=== PATIENT | male | born 1950 | race Caucasian/White ===

== ENCOUNTER → 2016-11-04 | Outpatient (CLI) | payer OTHER ==
[~2016-11-04] MED LIST: ASPEC81 PO; IBUP600T44 PO; LABE1TAB28 PO; LISI-461 PO; SIMV40TA2 PO
--- NOTE | 2016-11-04 13:38 | DIAGNOSTIC IMAGING REPORT ---
CHEST 2 VIEWS ROUTINE CLINICAL HISTORY: R06.09 Dyspnea on [id number] chest pain COMPARISON STUDY: No previous studies for comparison. FINDINGS: The bones soft tissues and hemidiaphragms are normal. The cardiomediastinal silhouette is normal. The lungs are clear. The pulmonary vasculature is normal. IMPRESSION: Negative chest. The above report was generated using voice recognition software. It may contain grammatical, syntax or spelling errors. Electronically signed by: Ricco Lomax M.D. 11/04/2016 1:37 PM Dictated Date/Time: 11/04/2016 1:37 PM
== END | disposition home or self-care (01) ==
LOC: C.RAD1850 13:28
PROVIDERS: ATTEND Internal Medicine
DX: R06.09 Other forms of dyspnea (principal)

== ENCOUNTER 2023-03-10 09:05 | Observation (INO) ==
--- NOTE | 2023-03-10 09:26 | Emergency Department Note ---
Impression & Plan Ataxia, Ambulatory dysfunction ED Provider Note Name: TERA BELLO Age: 72 Sex: Male Arrives Via: Walk-In Informant: Patient, , family ED Provider: Josh Farley MD Chief Complaint: Difficulty walking Impression: As per impressions above Medical Decision Makin-year-old male with paroxysmal A-fib who had previously been on Coumadin but developed a subdural hematoma requiring drainage over the summer. He also does have a history of hypertension, dyslipidemia and diabetes. Patient notes it been doing well the last few weeks in no distress. Yesterday afternoon/evening he started noticing difficulty walking straight. He feels like he just cannot move properly. He also noted some difficulty with signing his name. On examination he does not have any acute neurologic deficits. There is no LVO finding on examination and given symptoms have been ongoing since yesterday afternoon/evening he would not be a acute stroke alert patient nor would he be thrombolytic candidate especially given recent head bleed. We will hold off on anticoagulation/antiplatelet until further work-up and evaluation by hospitalist. Patient is agreeable to staying. Triage/Nursing Notes reviewed by Me External Chart Review by me: 12/14/2022 PCP visit regarding recent hospitalization for head bleed and management. Differential:Infection, dehydration, metabolic abnormality, hypo/hyperglycemia, electrolyte disturbance, anemia, hypoxia, cardiac sources, intracerebral event, toxicologic, neurologic, as well as other pathologies. Vital Signs: reviewed and remarkable for hypertensive Labs:ED labs Reviewed by me and remarkable for no significant abnormalities Imaging:CT of the head without contrast as per my informal interpretation reveals trace fluid at site of previous subdural no acute hemorrhage appreciated or mass effect. This was confirmed by radiologist. EKG:As per my interpretation. Indication strokelike symptoms. Sinus bradycardia at 59 bpm with a QTc of 396. There is no ectopy nor ischemia. When compared to EKG of December 02, 2022 there is no significant change. Cardiac/Tele Monitoring: Cardiac Monitoring: An Order was placed for continuous cardiac monitoring. The monitor shows a rate of 60 with a normal sinus rhythm. Consults:Dr Lisa VILLALOBOS Hospitalist Plan: Disposition: Discharged. Condition: Good History of Present Illness: 72-year-old male arrives for evaluation of ataxia. Patient states he noticed around 7 PM last night he just did not seem to be able to walk straight. Since then he has been stumbling around. He continued this morning. He denies any other significant other symptoms. He has not had any headaches, neck pain, fevers, chills, chest pain, shortness of breath, abdominal pain, back pain, leg swelling, urinary or bowel concerns. He states has been feeling pretty well recently. Patient did have an intracranial hemorrhage in November and has been off his Coumadin since then. He had been on Coumadin for A- fib. He has a Watchman device placement planned for April 2023 (2 months from now). Patient denies previous history of stroke. He is not a smoker. He does have a history of hypertension, diabetes, hyperlipidemia. No recent falls, trauma, injuries. Patient had bur holes drilled for drainage of his subdurals over the summer. Past Medical History:See Below Home Medications:See Below Allergies:No known drug allergy Vitals:Blood Pressure: 182/85, Pulse 58, RR 16, T 36.0C, O2 98% on RA Physical Exam: GENERAL: Patient is well appearing and in no acute distress. HEAD: AT/NC RESPIRATORY: No dyspnea. Clear to auscultation and equal bilaterally. CARDIOVASCULAR: Regular rate and rhythm.No murmur appreciated. GASTROINTESTINAL: Abdomen soft, non-tender, no peritonitis. EXTREMITIES: Normal motion all extremities, no cyanosis, no edema. NEUROLOGIC: Alert and oriented. No focal neurologic deficits appreciated SKIN: No rash, no jaundice, no diaphoresis. PSYCH: Appropriate GCS: 15 ED Course: Times/Reassessments: Patient is stable no distress no focal deficits beyond he is having some difficulty signing his name. Josh Farley MD Past Med/Surg History Medical History Benign positional vertigo Chronic obstructive pulmonary disease Diabetes mellitus, type 2 Disc disorder of cervical region Endocarditis Hyperlipidemia Hypertension [facility] current use of anticoagulant Mild intermittent asthma without complication Mild obstructive sleep apnea Nocturnal hypoxemia Subchondral cyst Viral wart, unspecified Surgical History Hernia History of colonoscopy History of herniorrhaphy Family History Sister Diabetes Hypertension Brother Diabetes Hypertension Father Myocardial infarction Hypertension Uncle Myocardial infarction Mother Ovarian cancer Hypertension Denies family history of Prostate cancer Breast cancer Lung cancer Colorectal cancer Stroke Social History Smoking Status: Never smoker Second Hand Exposure: No; Do You Dip or Chew Tobacco: No; Hx Alcohol Use: Yes Alcohol type: beer Hx Substance Use: No Preferred Language: Portuguese Communication Ability: Effective Visual Impairment: Limited Hearing Ability: Normal 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 Beliefs That Will Affect Care: None marital status: Current Living Situation: Spouse current occupational status: retired How many Children do You have: 0 Feels Safe at Home: Yes Childhood Exposure to Second-Hand Smoke: Yes caffeine: Yes Dental Care, Regularly: No Physical Activity Frequency: 3-4 Times per Week Seatbelt Use: always Sunscreen Use: Yes Assistive Devices: CPAP Allergies Allergies Allergy/AdvReac Type Severity Reaction Status Date / Time No Known Drug Allergies Allergy Verified 01/13/23 14:33 Home Meds Home Medications Medication Instructions Recorded Confirmed albuterol sulfate 90 mcg/actuation 1 puffs inhalation ONCE PRN 12/02/18 01/13/23 aerosol inhaler Shortness Of Breath Or Wheezing #1 g Previous Rx's Medication Instructions Recorded lancets (Accu-Chek Fastclix Lancet #100 ea 07/17/20 Drum) simvastatin 20 mg tablet 20 mg PO HS #90 tabs 02/12/22 lisinopril 20 mg tablet 20 mg PO QAM #90 tabs 10/16/22 metformin 500 mg tablet,extended See Rx Instructions .Route 10/22/22 release 24 hr .COMPLEX #180 tabs Accu-Chek Mami Plus test strp #100 ea 12/15/22 (blood sugar diagnostic) blood-glucose meter (Accu-Chek #1 ea 12/17/22 Guide Glucose Meter) amlodipine 5 mg tablet See Rx Instructions .Route 02/02/23 .COMPLEX #90 tabs Results & Data (ED) Vital Signs Vital Signs - 24 hr 03/10/23 09:06 03/10/23 09:12 03/10/23 10:00 Temperature 36.0 C L Temperature Source Temporal Artery Scan Pulse Rate 58 L Pulse Rate [Apical] 60 Pulse Rate from SpO2 Sensor Pulse Rhythm [Apical] Regular Pulse Strength [Apical] Normal Respiratory Rate 16 18 Respiratory Effort / Characteristics Non-Labored Non-Labored Spontaneous Respiratory Depth Normal Normal Respiratory Pattern Regular Blood Pressure 182/85 H Blood Pressure [Left Arm] 178/87 H Blood Pressure Mean 117 Blood Pressure Mean [Left Arm] 117 Blood Pressure Position [Left Arm] Sitting Pulse Oximetry 95 98 96 Oxygen Delivery Method Room Air Room Air Room Air Sepsis Recent Fever Within 48 Hours No Sepsis New/Unexplained Change in Mental Status N/A Sepsis Action Taken by Nursing No Action Required 03/10/23 10:03 03/10/23 10:04 03/10/23 10:53 Temperature Temperature Source Pulse Rate 59 L 59 L 62 Pulse Rate [Apical] Pulse Rate from SpO2 Sensor 58 L Pulse Rhythm [Apical] Pulse Strength [Apical] Respiratory Rate 20 21 Respiratory Effort / Characteristics Respiratory Depth Respiratory Pattern Blood Pressure Blood Pressure [Left Arm] Blood Pressure Mean Blood Pressure Mean [Left Arm] Blood Pressure Position [Left Arm] Pulse Oximetry 99 96 Oxygen Delivery Method Sepsis Recent Fever Within 48 Hours Sepsis New/Unexplained Change in Mental Status Sepsis Action Taken by Nursing 03/10/23 10:53 03/10/23 11:00 03/10/23 11:00 Temperature Temperature Source Pulse Rate 61 Pulse Rate [Apical] Pulse Rate from SpO2 Sensor 61 Pulse Rhythm [Apical] Pulse Strength [Apical] Respiratory Rate 17 Respiratory Effort / Characteristics Respiratory Depth Respiratory Pattern Blood Pressure 146/79 H 156/86 H Blood Pressure [Left Arm] Blood Pressure Mean 93 104 Blood Pressure Mean [Left Arm] Blood Pressure Position [Left Arm] Pulse Oximetry 96 Oxygen Delivery Method Sepsis Recent Fever Within 48 Hours Sepsis New/Unexplained Change in Mental Status Sepsis Action Taken by Nursing 03/10/23 12:00 03/10/23 12:01 03/10/23 12:01 Temperature Temperature Source Pulse Rate 58 L 60 Pulse Rate [Apical] Pulse Rate from SpO2 Sensor 59 L 60 Pulse Rhythm [Apical] Pulse Strength [Apical] Respiratory Rate 19 19 Respiratory Effort / Characteristics Respiratory Depth Respiratory Pattern Blood Pressure 142/87 H Blood Pressure [Left Arm] Blood Pressure Mean 103 Blood Pressure Mean [Left Arm] Blood Pressure Position [Left Arm] Pulse Oximetry 96 95 Oxygen Delivery Method Sepsis Recent Fever Within 48 Hours Sepsis New/Unexplained Change in Mental Status Sepsis Action Taken by Nursing 03/10/23 12:05 Temperature Temperature Source Pulse Rate Pulse Rate [Apical] Pulse Rate from SpO2 Sensor Pulse Rhythm [Apical] Pulse Strength [Apical] Respiratory Rate Respiratory Effort / Characteristics Respiratory Depth Respiratory Pattern Blood Pressure Blood Pressure [Left Arm] 142/87 H Blood Pressure Mean Blood Pressure Mean [Left Arm] 105 Blood Pressure Position [Left Arm] Sitting Pulse Oximetry Oxygen Delivery Method Sepsis Recent Fever Within 48 Hours Sepsis New/Unexplained Change in Mental Status Sepsis Action Taken by Nursing Laboratory Data 03/10/23 Unknown 03/10/23 Unknown Lab Results 03/10/23 Range/Units 10:12 POC Glucose 124 H (70-99) mg/dl Administered Medications Discontinued Medications Ioversol (Optiray 320 125ml) 115 ml IV ONCE ONE Stop: 03/10/23 13:24 Last Admin: 03/10/23 13:24 Dose: 115 ml Documented By: NGHIA Imaging Data Radiologist's Impression: Head CT 03/10/23 09:26 CT head/brain wo con CLINICAL HISTORY: Ataxia Technique: Contiguous axial CT images of the head were acquired from the base of the skull to the vertex without intravenous contrast administration. Images were viewed in brain, subdural and bone windows. Automated dose lowering techniques and/or adjustment according to patient size were utilized for this exam. Comparison: Comparison is made to CT head 12/02/2022 Findings: Previously noted left subdural hematoma is essentially resolved. No acute abnormality is seen. Imaged portions of the paranasal sinuses and mastoid air cells are clear. The orbits appear normal. Postsurgical changes are seen in the left calvarium. Impression: No acute abnormality. Previously noted left subdural hemorrhage has resolved. ACT 112: Negative or not required by law. Electronically signed by: Teddy Staton M.D. 03/10/2023 10:54 AM Head CTA 03/10/23 11:59 CT ANGIOGRAM OF THE BRAIN CLINICAL HISTORY: Dysgraphia. COMPARISON STUDY: Unenhanced CT of the brain performed the same day 03/10/2023. TECHNIQUE: Following the IV administration of 115 cc of Optiray 320, CT angiogram of the brain was performed from the skull base to the vertex. Images are reviewed in the axial, sagittal, and coronal planes. 3-D MIPS images are created and assessed. IV contrast was administered without complication. A dose lowering technique was utilized adhering to the principles of ALARA. FINDINGS: Brain parenchyma: There is age-related involutional change noting mild to moderate subcortical and periventricular microangiopathic disease. There is no evidence of hemorrhage, mass effect, or acute territorial ischemia noting angiographic phase technique. There is no evidence of enhancing mass lesion on the angiogram phase images. No extra-axial fluid collection is seen. There is a small residual/ chronic appearing extra-axial fluid collection along the high left convexity seen on axial image #190. This likely represents a small chronic subdural hematoma. Ventricles, sulci, and cisterns: Prominent secondary to involutional change. CT angiogram of the brain: There is atherosclerotic calcification of the cavernous carotid and vertebral arteries. The internal carotid arteries are widely patent, as are the anterior and middle cerebral arteries. The vertebrobasilar system and posterior cerebral arteries are widely patent. The left vertebral artery is dominant. The right P1 segment is diminutive. There are bilateral posterior communicating arteries. There is no aneurysm, high-grade stenosis, or focal vessel cutoff identified throughout the intracranial circulation. Dural sinuses: Clear as visualized. Orbits: The bony orbits are intact. The orbital contents are normal as visualized. Sinuses and mastoids: The visualized paranasal sinuses are clear. The mastoid air cells are well pneumatized. Calvarium: There are 2 left-sided naida holes. No destructive calvarial lesion is seen. IMPRESSION: 1. There is no evidence of acute hemorrhage, mass effect, or territorial ischemia noting angiographic phase technique. 2. There is a small residual extra axial fluid collection along the high left convexity. This likely represents a chronic subdural hematoma and measures up to 5 mm in thickness. 3. Unremarkable CT angiogram of the brain. ACT 112: Negative or not required by law. Electronically signed by: Nolan Tierney M.D. 03/10/2023 1:59 PM Neck CTA 03/10/23 11:59 NECK CTA HISTORY: new onset Dysgraphia, right handed TECHNIQUE: Multiaxial CT images of the neck were performed following the intravenous administration of contrast to evaluate the major cervical vessels. 3D/MIP images were also obtained. Sagittal and coronal reformats were reviewed. All measurements were calculated based on NASCET criteria. A dose lowering technique was utilized adhering to the principles of ALARA. COMPARISON STUDY: None. FINDINGS: The aortic arch and proximal great vessels are widely patent. There is no significant stenosis, occlusion, or dissection identified within the bilateral common carotid, internal carotid, or vertebral arteries. Mild to moderate calcified plaque within the bilateral carotid bulbs. IMPRESSION: No significant stenosis, occlusion, or dissection identified within the carotid or vertebral arteries. ACT 112: Negative or not required by law. Electronically signed by: Clay Shannon M.D. 03/10/2023 1:50 PM Discharge Plan Visit Data Chief Complaint: Dizziness Stated Complaint: DIZZINESS, PREVIOUS BRAIN BLEED ED Provider: Josh Farley Discharge Problem: Ataxia, Ambulatory dysfunction Patient Disposition: Being Evaluated by Hospitalist Discharge Instructions Interventions: ED Discharge Assessment Last Done: 03/10/23 15:27
[2023-03-10 10:20] LABS: Basophils # (auto) 0.02 K/uL (0.00-0.20); Basophils % (auto) 0.5 %; Eosinophils # (auto) 0.18 K/uL (0.00-0.50); Eosinophils % (auto) 4.7 %; Hemoglobin 16.1 g/dl (14.0-18.0); Immature Granulocytes # (auto) 0.01 K/uL (0.01-0.20); Immature Granulocytes % (auto) 0.3 %; Lymphocytes # (auto) 1.15 K/uL (1.20-3.40); Mean Corpuscular Hemoglobin 29.2 pg (25.0-34.0); Mean Corpuscular Volume 83.5 fL (80.0-100.0); Mean Platelet Volume 10.2 fL (9.4-12.4); Monocytes # (auto) 0.27 K/uL (0.11-0.59); Neutrophils % (auto) 57.5 %; Platelet Count 159 K/uL (130-400); RDW Coefficient of Variation 12.5 % (11.5-14.5); RDW Standard Deviation 37.8 fL (36.4-46.3); Red Blood Count 5.51 M/uL (4.70-6.10); White Blood Count 3.83 K/ul (4.8-10.8)
--- OUTSIDE RECORDS SUMMARY | 2023-03-10 10:27 | External Medical Summary | Summary of Care ---
Author Name Unknown Organization [facility] Address [address] [place] [address] Phone [phone] Care Team Providers Care Mechanic General Operational Test Name Role Phone Malika Harris MD Primary Care Provide r Reason for Visit * Reason Comments NEW PATIENT * Evaluate & Treat - Unlimited Visits (Within 30 days (routine)) - Authorized Specialty Diagnoses / Procedures Referred By Contjared t Referred To Contact Cardiovascular Medicine / Cardiology Diagnoses Atrial fibrillation (HCC) Nathan Lemus MD [address] [address] Referral ID Status Reason Start Date Expiration Date Visits Requested Visits Authorized [id number] Authorized Specialty Services Required 01/23/2023 01/24/2024 [id number] Encounter Details Date Type Department Care Team (Late st Contact Info) Description 02/19/2023 1:00 PM EDT Office Visit Cardiology [facility] [address] [place] [address] Manuel Ellis CRNP [address] [place] [address] Persistent atrial fibrillation (HCC)*; HTN, goal below 130/80; Type 2 diabetes mellitus with hemoglobin A1c goal of less than 8.0% (HCC) Allergies No known active allergiesdocumented as of this encounter (statuses as of 02/23/2023) Medications Medication Sig Dispensed Refills Start Date End Date Status amLODIPine Besylate 5 MG Oral Tablet (Norvasc) Take 1 Tablet by mouth in the morning. 0 Active Lisinopril 20 MG Oral Tablet (Prinivil) Take 1 Tablet by mouth in the morning. 0 Active Simvastatin 20 MG Oral Tablet (Zocor) Take 1 Tablet by mouth every evening. 0 Active metFORMIN HCl ER 500 MG Oral Tablet Extended Release 24 Hour (Glucophage XR) Take 1 tablet by mouth in the morning and 2 tablets by mouth in the evening. 0 Active levETIRAcetam 500 MG Oral Tablet (Keppra) Take 1 Tablet by mouth two times per day (morning & before bedtime). Do all this for 4 days. 8 Tablet 0 12/05/2022 02/19/2023 Discontinued( Medication List Clean Up) documented as of this encounter (statuses as of 02/23/2023) Active Problems Problem Noted Date Diagnosed Date Persistent atrial fibrillation 02/19/2023 HTN, goal below 130/80 02/19/2023 Type 2 diabetes mellitus wit h hemoglobin A1c goal of less than 8.0% 02/19/2023 Dyslipidemia 02/19/2023 BRIAN on CPAP 02/19/2023 documented as of this encounter (statuses as of 02/23/2023) Resolved Problems Problem Noted Date Diagnosed Date Resolved Date SDH (subdural hematoma) 12/05/202211/18 documented as of this encounter (statuses as of 02/23/2023) Social History Tobacco Use Types Packs/Day Years Used Date Smoking Tobacco: Never Smokeless Tobacco: Never Tobacco Cessation:Counseling Given: Not Answered Alcohol Use Standard Drinks/Week Comments Never 0 (1 standard drink = 0.6 oz pur e alcohol) Sex and Gender Information Value Date Recorded Sex Assigned at Not on file Gender Identity Not on file Sexual Orientation Not on file Job Start Date Occupation Industry Not on file Not on file Not on file documented as of this encounter Last Filed Vital Signs Vital Sign Reading Time Taken Comments Blood Pressure 142/74 02/19/2023 12:53 PM EDT Pulse 66 02/19/2023 12:53 PM EDT Temperature - - Respiratory Rate - - Oxygen Saturation 97% 02/19/2023 12: 53 PM EDT Inhaled Oxygen Concentration - - Weight 111.5 kg (245 lb 14.4 oz) 2022 12:53 PM EDT Height 170.2 cm (5' 7") 02/19/2023 12:5 3 PM EDT Body Mass Index 38.51 02/19/2023 12:53 PM EDT documented in this encounter Functional Status Functional Status Response Date of Assess ment Are you deaf or do you have serious difficulty h earing? No 12/02/2022 Are you blind or do you have serious difficulty seeing, even when wearing glasses? No 12/02/2022 Do you have serious difficul ty walking or climbing stairs? (5 years old or older) No 12/02/2022 Do you have difficulty dress ing or bathing? (5 years old or older) No 12/02/2022 Because of a physical, menta l, or emotional condition, do you have difficulty doing errands alone such as visiting a doctor s office or shopping? (15 years old or older) No 12/03/19 Cognitive Status Response Date of Assessm ent Because of a physical, menta l, or emotional condition, do you have serious difficulty concentrating, remembering, or making decisions? (5 years old or older No 12/02/2022 documented as of this encounter Progress Notes * Manuel Ellis CRNP - 02/19/2023 1:35 PM EDT (Kevin) Subjective: Zander John is a 72 year old male. Chief Complaint Patient presents with NEW PATIENT HPI: Zander John is a 72 year old who presents today at the request of his PCP Malika Harris MD and Dr. Lemus to discuss Watchman implantation. Zander John had persistent atrial fibrillation back in 2018. He was noted to have atrial fibrillationwhen going in for a colonoscopy. Was unaware of the atrial fibrillation at that time. He was started on Eliquis at that point and then ultimately underwent a cardioversion with Dr. Fields on 03/09/2019. He has been maintained on Eliquis ever since. In November of 2022 he started to develop some neurologic changes. At that time he was noted to have an intracranial hemorrhage. [facility] and his anticoagulation was stopped. He then more a bio Tel event monitor however those results are not yet available. His CHADS-VASc is 3 with age hypertension and diabetes in his currently on no anticoagulation. He was referred today to discuss Watchman implantation. He still does some farming. He has not had any issues as far as chest pain, palpitations or changesin his breathing. He is overweight and does have obstructive sleep apnea and is treated with CPAP. CARDIAC HISTORY: 03/09/2019 [facility] for persistent AF - [facility] Dr. Fields - started Ronna 12/02/2022 intracranial bleed [place] [facility] [place]/03[place]: Left frontal and parietal naida-holes for evacuation of subdural hematoma (Dipak) PMH: Patient Active Problem List Diagnosis Code Persistent atrial fibrillation (HCC) I48.19 HTN, goal below 130/80 I10 Type 2 diabetes mellitus with hemoglobin A1c goal of less than 8.0% (HCC) E11.9 Dyslipidemia E78.5 BRIAN on CPAP G47.33 Current Outpatient Medications Medication Sig Dispense Refill amLODIPine Besylate 5 MG Oral Tablet (Norvasc) Take 1 Tablet by mouth in the morning. Lisinopril 20 MG Oral Tablet (Prinivil) Take 1 Tablet by mouth in the morning. Simvastatin 20 MG Oral Tablet (Zocor) Take 1 Tablet by mouth every evening. metFORMIN HCl ER 500 MG Oral Tablet Extended Release 24 Hour (Glucophage XR) Take 1 tablet by mouthin the morning and 2 tablets by mouth in the evening. No current facility-administered medications for this visit. Past Medical History: Diagnosis Date Dyslipidemia HTN, goal below 130/80 BRIAN on CPAP Persistent atrial fibrillation (HCC) Type 2 diabetes mellitus with hemoglobin A1c goal of less than 8.0% (HCC) Past Surgical History: Procedure Laterality Date LAP;REPAIR RECURRENT HERNIA Left OPEN SKULL FOR REMOVAL OF HEMATOMA Left 12/03/2022 CRANIOTOMY EVACUATION OF SUBDURAL OR EXTRADURAL HEMATOMA SUPRATENTORIAL performed by Lul Quesada, [place] [facility] [place] Review of patient's allergies indicates: No Known Allergies Family History Problem Relation Age of Onset Heart disease Father Hyperlipidemia Sister Hypertension Sister Hypertension Brother Hyperlipidemia Brother Diabetes Brother Diabetes Brother Hypertension Brother Hyperlipidemia Brother Social History Socioeconomic History Marital status: Tobacco Use Smoking status: Never Smokeless tobacco: Never Vaping Use Vaping Use: Never used Substance and Sexual Activity Alcohol use: Never Drug use: Never Review of Systems: General: No change in weight, No weakness, and No fevers, sweats, or chills Neck: No complaint of lumps in neck, No swollen glands, No recent swelling in thyroid area, and No significant pain in neck Respiratory: No cough, sputum, or hemoptysis, No wheezing, No shortness of breath, and No recent change in breathing Cardiac: No chest pain, No shortness of breath, No dyspnea on exertion, No orthopnea, No paroxysmalnocturnal dyspnea, No edema, No palpitations, and No syncope Gastrointestinal: No dysphagia, No significant heartburn, No significant change in appetite, No nausea, vomiting, diarrhea, or constipation, No hematemesis, No blood in stools or black tarry stools, No abdominal bloating or early satiety, and No abdominal pain Urinary: No urinary frequency, No dysuria, No hematuria, No urinary urgency, No polyuria, No nocturia, No incontinence, No hesitancy, and No sensation of incomplete voiding Musculoskeletal: No joint pain or stiffness, No arthritis, No backache, No muscle pains or cramps, and No joint swelling Hematologic: No anemia, No easy bruising or abnormal bleeding, and No history of transfusion Neurologic: No fainting or blackouts, No seizures, No paralysis or focal weakness, No numbness or tingling, No tremors, and No significant problems with memory Skin: No edema, No rash, and No itching Extremities: No pain, redness or swelling on the joints Objective: BP 142/74 | Pulse 66 | Ht 1.702 m (5' 7") | Wt 111.5 kg (245 lb 14.4 oz) | SpO2 97% | BMI 38.51 kg/m | BSA 2.3 m General: alert, no distress, and obese Neck: supple, no adenopathy, no bruits, no JVD, thyroid normal size, non-tender, without nodularity Heart: regular rate & rhythm, no murmur, and no gallops Lungs: chest symmetric with normal AP diameter, no chest deformities noted, no chest wall tenderness, lungs clear to auscultation Pulses: radial=2/4, carotid=2/4 w/o bruits, posterior tibial=2/4, dorsalis pedis=2/4 Extremities: less than 2 second capillary refill, no joint deformities, effusion, or inflammation, no edema, no skin discoloration, no cyanosis Neuro Exam: alert & oriented x 3 with fluent speech, no focal motor/sensory deficits, gait normal Skin: skin color, texture, turgor are normal, no rashes or significant lesions EKG reveals normal sinus rhythm today Patient advised to call me if he/she does not hear back from me regarding any testing done/ordered.Explained I will always make contact with the patient once I receive the results but if they do notcome back to me, my safety net is the patient who should call me if they hear nothing within 1-2 weeks. ASSESSMENT/PLAN: ICD-10-CM 1. Persistent atrial fibrillation (HCC) I48.19 2. HTN, goal below 130/80 I10 3. Type 2 diabetes mellitus with hemoglobin A1c goal of less than 8.0% (HCC) E11.9 Persistent AF - his CHADS-VASc is 3 which puts him at high risk based on the ACC shared decision making criteria.He was given a handout of this information. - given his CHADS-VASc of 3 regardless of what the most recent monitor showed we know that having atrial fibrillation once predisposes him to having it in the future as well. He was not aware of his atrial fibrillation back in 2019 thus he could clearly be having silent atrial fibrillation. - we discussed Watchman in detail. He wishes to go home and discuss with his family further before making any decision. - he will call with his final decision. - I called Dr. Lemus's office in the monitor results are not yet available. They are to fax thoseonce they do become available 02/23/2023 - NO AF on Zio monitor - Shared Decision Making Documentation for Watchman I provided the patient with the [facility] [employer] decision aid for AFIB Stroke Prevention to the patient. They wish to proceed with Watchman implantation 2. HTN - stable - follow up per PCP 3. DM - per PCP Follow up as needed. I spent a total of 30-39 minutes (exact time 35 mins) on the date of service in preparation, delivery, and documentation of the care provided to Zander John excluding any time spent in the performance of separately billed services. Manuel GARZA, ZACHERY Division of Cardiology/[place] [address] MC: [phone] 02/19/2023 1:35 PM documented in this encounter Plan of Treatment Scheduled Referrals Name Type Priority Associated Diagnoses Orde r Schedule CARDIOLOGY REFERRAL OP Referral Within 30 days (routine) Atrial fibrillation (HCC) Ordered: 01/23/2023 Health Maintenance Due Date Last Done Comments Lipid Panel 1950 COVID-19 Vaccine (#1) 1950 Pneumococcal Vaccine: 65+ Years (1 - PCV) 1958 Depression Screening 1964 Albumin/Creatinine Ratio 1970 Diabetic Eye Exam 1970 Diabetic Foot Exam 1970 Hepatitis C Screening 1970 DTaP,Tdap,and Td Vaccines (1 - Tdap) 1971 Cologuard 1997 Colonoscopy 1997 Colorectal Cancer Screening 1997 Fecal Occult Blood Test 1997 Sigmoidoscopy 1997 Zoster Vaccines (1 of 2) 2002 Hepatitis B (1 of 3 - Risk 3-dose series) 2012 Influenza Vaccine (FLU shot) (#1) 2022 HbA1c 06/05/2023 12/03/2022 GFR 12/06/2023 12/05/2022, 11/18, 12/03/2022, Additional history exists GARDASIL-HPV IMMUNIZATION SERIES Aged Out No longer eligible based on patient's age to complete this topic MENINGOCOCCAL (MENACTRA/MENVEO) Aged Out No longer eligible based on patient's age to complete this topic documented as of this encounter Medical Devices Not on filedocumented as of this encounter Visit Diagnoses Diagnosis Persistent atrial fibrillation (HCC)- Primary Atrial fibrillation HTN, goal below 130/80 Unspecified essential hypertension Type 2 diabetes mellitus with hemoglobin A1c goal of less than 8.0% (HCC) documented in this encounter Advance Directives Latest Code Status on File Code Status Date Activated Date Inactivated Comments Full Code 12/03/2022 3:37 PM 12/05/2022 6:05 PM This order reflects the patients wishes and were consensually agreed upon. Question Answer Comments Discussion of Advance Directives occurred with: Not Discussed due to patient's condition Code Status History Code Status Date Activated Date Inactivated Comments Full Code 12/02/2022 6:38 PM 12/03/2022 3:36 PM This order reflects the patients wishes and were consensually agreed upon. Question Answer Comments Discussion of Advance Directives occurred with: Not Discussed due to patient's condition Care Teams Mechanic General Operational Test Relationship Specialty Start Date End Date Malika Harris MD [address] [place] [facility] [place] [address] PCP - General Internal Medicine 12/02/22 documented as of this encounter
--- OUTSIDE RECORDS SUMMARY | 2023-03-10 10:27 | External Medical Summary | Summary of Care ---
Author Name Unknown Organization [facility] Address [address] [place] [address] Phone [phone] Care Team Providers Care Design Lead Name Role Phone Malika Harris MD Primary Care Provide r Reason for Visit * Reason Comments Return Neuro * Evaluate & Treat - Unlimited Visits (Within 30 days (routine)) - Authorized Specialty Diagnoses / Procedures Referred By Contjared t Referred To Contact Neurosurgery Diagnoses Subdural Hematoma Procedures Eval and treat Malika Harris MD [address] [place] [address] Referral ID Status Reason Start Date Expiration Date Visits Requested Visits Authorized [id number] Authorized Specialty Services Required 12/26/2022 12/27/[phone] Encounter Details Date Type Department Care Team Description 01/07/2023 Office Visit Neurosurgery, [place] [address], [place] [id number] Lul Quesada MD [address], [place] [id number] SDH (subdural hematoma) ([facility])*; S/P craniotomy; Chronic anticoagulation Allergies No known active allergiesdocumented as of this encounter (statuses as of 01/07/2023) Medications Medication Sig Dispensed Refills Start Date [...] by mouth in the evening. 0 Active documented as of this encounter (statuses as of 01/07/2023) Resolved Problems Problem Noted Date Resolved Date SDH (subdural hematoma) 12/05/2022 12/06/19 documented as of this encounter (statuses as of 01/07/2023) Social History Tobacco Use Types Packs/Day Years Used Date Smoking Tobacco: Never Smokeless Tobacco: Never Tobacco Cessation:Counseling Given: Not Answered Alcohol Use Standard Drinks/Week Comments Never 0 (1 standard drink = 0.6 oz pur e alcohol) Sex Assigned at Date Recorded Not on file Job Start Date Occupation Industry Not on file Not on file Not on file documented as of this encounter Last Filed Vital Signs Vital Sign Reading Time Taken Comments Blood Pressure 148/82 01/07/2023 2:10 PM EDT Pulse 72 01/07/2023 2:10 PM EDT Temperature 37.7 C (99.9 F) 01/07/2023 2:10 PM ED T Respiratory Rate - - Oxygen Saturation 98% 01/07/2023 2:10 PM EDT Inhaled Oxygen Concentration - - Weight 110.8 kg (244 lb 4.8 oz) 01/07/2023 2:10 PM EDT Height - - Body Mass Index 38.26 12/02/2022 6:30 PM EDT documented in this encounter Functional [...] as of this encounter Progress Notes * Mohinder Gomez PA-C - 01/07/2023 2:32 PM EDT NEUROSURGERY - PROGRESS NOTE [facility], [place] [address] Name: Zander John Date: 01/07/2023 Time: 2:00 PM Procedures: 12/03/2022: Left frontal and parietal naida-holes for evacuation of subdural hematoma (Dipak) Zander John is a 72 year old right-handed male Doing well, feels good Seeing Cardiology on Thursday Has not resumed Eliquis Walking everyday for 20-25 minutes/day No drainage from the incisions No fevers OBJECTIVE: BP 148/82 | Pulse 72 | Temp 37.7 C (99.9 F) (Temporal Artery) | Wt 110.8 kg (244 lb 4.8 oz) | SpO2 98% | BMI 38.26 kg/m | BSA 2.29 m Pt found sitting in chair; NAD Pleasant and cooperative with exam Left cranial incision is clean, dry, and intact One area of scabbing noted Arturo/sutures in place No evidence of drainage, dehiscence, or infection CN ii-xii appear grossly intact Dianna No motor or sensory deficits VISIT DIAGNOSIS/PRE-OP ORDERS: SDH (subdural hematoma) (HCC) (Primary) S/P craniotomy Chronic anticoagulation Follow Up: Return if symptoms worsen or fail to improve. Current Medications - Prior to This Encounter Medication Sig Last Dose Discont. amLODIPine Besylate 5 MG Oral Tablet (Norvasc) Take 1 Tablet by mouth in the morning. Lisinopril 20 MG Oral Tablet (Prinivil) Take 1 Tablet by mouth in the morning. metFORMIN HCl ER 500 MG Oral Tablet Extended Release 24 Hour (Glucophage XR) Take 1 tablet by mouthin the morning and 2 tablets by mouth in the evening. Simvastatin 20 MG Oral Tablet (Zocor) Take 1 Tablet by mouth every evening. IMPRESSION: Patient Active Problem List Diagnosis Code (none) - all problems resolved or deleted PLAN: Imaging reviewed with patient and No further imaging needed Return to clinic as needed No restrictions Ok to drive Ok to resume Eliquis if deemed necessary, follow-up with Cardiology Patient seen today in clinic with Dr Quesada Patient encouraged to contact the department with any questions or concerns I spent a total of 30 minutes on the date of service in preparation, delivery, and documentation ofthe care provided to Zander John excluding any time spent in the performance of separately billed services. Mohinder Gomez [facility], MAGALI Lead Physician Senior Sales Consultant, Department of Neurosurgery Tag Press Operator of Neurosurgery, [facility] 01/07/2023 2:36 PM ATTENDING ADDENDUM: I have reviewed the advanced practitioner documentation and agree. I saw and evaluated the patient on date of service referenced in note and have performed the following medically appropriate historyand/or exam: Zander John is a very pleasant 72 year old male who returns to our cerebrovascular clinic for follow up and discussion of further management. Head CT looks great today showing resolution of the left sided CSDH. He reports doing very well and he is grateful for our care. He is meeting his cardiologistnext week. If he needs to restart anti coagulation that is ok with me but I explained that there isrisk that he will suffer from additional intracranial bleeding events. In accordance with the patient's symptoms and imaging findings, I recommended that we perform the above mentioned plan. The patient questions were answered thoroughly. The patient expressed understanding and elected to proceed with the above mentioned plan. Lul Quesada MD Director of Open Vascular and Endovascular Neurosurgery at [facility] Taping Machine Operator of Neurosurgery, [facility] documented in this encounter Plan of Treatment Health Maintenance Due Date Last Done Comments Lipid Panel 1950 COVID-19 Vaccine (#1) 1950 Pneumococcal Vaccine: 65+ Ye ars (1 - PCV) 1958 Depression Screening 1964 Hepatitis C Screening 1970 DTaP,Tdap,and Td Vaccines (1 - Tdap) 1971 Cologuard 1997 Colonoscopy 1997 Colorectal Cancer Screening 1997 Fecal Occult Blood Test 1997 Sigmoidoscopy 1997 Zoster Vaccines (1 of 2) 2002 Influenza Vaccine (FLU shot) (#1) 2022 GARDASIL-HPV IMMUNIZATION SERIES Aged Out No longer eligible based on patient's age to complete this topic Hepatitis B Aged Out No longer eligi ble based on patient's age to complete this topic MENINGOCOCCAL (MENACTRA/MENVEO) Aged Out No longer eligible based on patient's age to complete this topic documented as of this encounter Medical Devices Not on filedocumented as of this encounter Visit Diagnoses Diagnosis SDH (subdural hematoma) (HCC)- Primary Subdural hemorrhage S/P craniotomy Other postprocedural status Chronic anticoagulation Long-term (current) use of anticoagulants documented in this encounter Advance Directives Latest [...] Discussed due to patient's condition Care Teams Design Lead Relationship Specialty Start Date End Date Malika Harris MD [address] [place] [address] PCP - General Internal Medicine 12/02/22 documented as of this encounter"
--- OUTSIDE RECORDS SUMMARY | 2023-03-10 10:27 | External Medical Summary | Summary of Care ---
Author Name Unknown Organization [facility] Address [address] [place] [address] Phone [phone] Care Team Providers Care Clerk Stenographer Name Role Phone Malika Harris MD Primary Care Provide r Encounter Details Date Type Department Care Team Description 01/20/2023 Orders Only [facility] [address] [place] [address] Dk Light MD [address] [place] [address] Encounter to establish care* Allergies No known active allergiesdocumented as of this encounter (statuses as of 01/20/2023) Medications Medication Sig Dispensed Refills Start Date [...] as of this encounter (statuses as of 01/20/2023) Resolved Problems Problem Noted Date Resolved Date SDH (subdural hematoma) 12/05/2022 12/06/19 23 documented as of this encounter (statuses as of 01/20/2023) Social History Tobacco Use Types Packs/Day Years Used Date Smoking Tobacco: Never Smokeless Tobacco: Never Alcohol Use Standard Drinks/Week Comments Never 0 (1 standard drink = 0.6 oz pur e alcohol) Sex Assigned at Date Recorded Not on file Job Start Date Occupation Industry Not on file Not on file Not on file documented as of this encounter Functional Status Functional Status Response [...] No 12/02/2022 documented as of this encounter Plan of Treatment Upcoming Encounters Date Type Specialty Care Team Description 01/21/2023 Office Visit Cardiology Dk Light MD [address] [place] [address] Scheduled Orders Name Type Priority Associated Diagnoses Orde r Schedule EKG EKG Routine Encounter to establish care Expected: 01/21/2023 (Approximate), Expires: 07/22/2023 Health Maintenance Due Date Last Done Comments [...] as of this encounter Visit Diagnoses Diagnosis Encounter to establish care- Primary Other reasons for seeking consultation documented in this encounter Advance Directives Latest [...] Discussed due to patient's condition Care Teams Clerk Stenographer Relationship Specialty Start Date End Date Malika Harris MD [address] [place] [address] PCP - General Internal Medicine 12/02/22 documented as of this encounter
--- OUTSIDE RECORDS SUMMARY | 2023-03-10 10:27 | External Medical Summary | Summary of Care ---
Author Name Unknown Organization [facility] Address [address] [place] [address] Phone [phone] Care Team Providers Care Drug Room Clerk Name Role Phone Malika Harris MD Primary Care Provide r Reason for Visit * Reason Comments NEW PATIENT * Evaluate & Treat - Unlimited Visits (Within 30 days (routine)) - Authorized Specialty Diagnoses / Procedures Referred By Contjared t Referred To Contact Cardiovascular Medicine / Cardiology Diagnoses Atrial fibrillation (HCC) Nathan Lemus MD [address] [address] Referral ID Status Reason Start Date Expiration Date Visits Requested Visits Authorized [id number] Authorized Specialty Services Required 01/23/2023 01/24/[id number] Encounter Details Date Type Department Care Team (Latest Contact Info) Description 02/19/2023 1:00 PM EDT Office Visit Cardiology [facility] [address] [place] [address] Manuel Ellis CRNP [address] [place] [address] Persistent atrial fibrillation (HCC)*; HTN, goal below 130/80; Type 2 diabetes mellitus with hemoglobin A1c goal of less than 8.0% (HCC); Other right-sided nontraumatic intracerebral hemorrhage (HCC) Allergies No known active allergiesdocumented as of this encounter (statuses as of 02/24/2023) Medications Medication Sig Dispensed Refills Start Date [...] as of this encounter (statuses as of 02/24/2023) Active Problems Problem Noted Date Diagnosed Date Persistent atrial fibrillation 02/19/2023 HTN, goal below 130/80 02/19/2023 Type 2 diabetes mellitus wit h hemoglobin A1c goal of less than 8.0% 02/19/2023 Dyslipidemia 02/19/2023 BRIAN on CPAP 02/19/2023 documented as of this encounter (statuses as of 02/24/2023) Resolved Problems Problem Noted Date Diagnosed Date Resolved Date SDH (subdural hematoma) 12/05/202211/18 documented as of this encounter (statuses as of 02/24/2023) Social History Tobacco Use Types Packs/Day Years [...] (15 years old or older) No 12/03/19 23 Cognitive Status Response Date of Assessm ent [...] intracranial hemorrhage. [facility] Dr. Quesada and his anticoagulation [...] sleep apnea and is treated with CPAP. 12/02/2022 CT Head IMPRESSION 1. Stable size and appearance of a fairly large heterogeneous subdural hematoma along the left frontotemporoparietal convexity; appearance is suggestive of acute on chronic subdural hematoma. 2. Stable significant mass effect in the left cerebral hemisphere as described above with 12 mm left to right midline shift, but no signs of herniation. CARDIAC HISTORY: 03/09/2019 DCC for persistent AF - [facility] Dr. Fields - started Eliquis 12/02/2022 intracranial bleed requiring evacuation here at [facility] 12/03/2022: Left frontal and parietal naida-holes for [...] hemoglobin A1c goal of less than 8.0% ([facility]LY [facility]) Past Surgical History: Procedure Laterality Date LAP;REPAIR RECURRENT HERNIA Left OPEN SKULL FOR REMOVAL OF HEMATOMA Left 12/03/2022 CRANIOTOMY EVACUATION OF SUBDURAL OR EXTRADURAL HEMATOMA SUPRATENTORIAL performed by Lul Quesada, [place] OR [facility] Review of patient's allergies indicates: No Known [...] goal of less than 8.0% (HCC) E11.9 4. Other right-sided nontraumatic intracerebral hemorrhage (HCC) I61.8 Persistent AF - his CHADS-VASc is 3 [...] 02/23/2023 - NO AF on Zio monitor The implantation of the device is preformed under general anesthesia and involves either an extended outpatient stay or an over night hospital admission. Following implant, a six week course of anticoagulation with warfarin, DOAC or DAPT is prescribed followed by a post implantation transesophagealechocardiogram at 45 days to assess device. Once appropriate device placement has been confirmed, DAPT would be prescribed for 6 months followed by aspirin indefinitely. The successful of the procedure is estimated at 95% and the complication rate is approximately 2% which primarily includes cardiac perforation, device dislodgement, and stroke. Additional risks include vascular injury, bleeding, and rarely . - Shared Decision Making Documentation for Watchman I provided the patient with the [facility] [employer] decision aid for AFIB Stroke Prevention to the patient. They wish to proceed with Watchman implantation - Dr. Lemus has referred for this procedure. 2. HTN - stable - follow up per PCP 3. DM - per PCP Follow up as needed. I spent a total of 30-39 minutes (exact time 35 mins) on the date of service in preparation, delivery, and documentation of the care provided to Zander John excluding any time spent in the performance of separately billed services. Manuel GARZA, ZACHERY Division of Cardiology/[place] [address] MC: [id number] 02/19/2023 1:35 PM documented in [...] A1c goal of less than 8.0% (HCC) Other right-sided nontraumatic intracerebral hemorrhage (HCC) documented in this encounter Advance Directives [...] Discussed due to patient's condition Care Teams Drug Room Clerk Relationship Specialty Start Date End Date Malika Harris MD [address] [place] [address] PCP - General Internal Medicine 12/02/22 documented as of this encounter
--- OUTSIDE RECORDS SUMMARY | 2023-03-10 10:27 | External Medical Summary | Summary of Care ---
Author Name Unknown Organization [facility] Address [address] [place] [address] Phone [phone] Care Team Providers Care Furnace Feeder Name Role Phone Malika Harris MD Primary Care Provide r Encounter Details Date Type Department Care Team (Late st Contact Info) Description 02/18/2023 Orders Only Cardiology [facility] [place] [address] [place] [address] Manuel Ellis CRNP [address] [place] [address] A-fib (FORMERLY [facility])* Allergies No known active allergiesdocumented as of this encounter (statuses as of 02/18/2023) Medications Medication Sig Dispensed Refills Start Date [...] as of this encounter (statuses as of 02/18/2023) Resolved Problems Problem Noted Date Diagnosed Date Resolved Date SDH (subdural hematoma) 12/05/202211/18 documented as of this encounter (statuses as of 02/18/2023) Social History Tobacco Use Types Packs/Day Years [...] Plan of Treatment Upcoming Encounters Date Type Department Care Team (Late st Contact Info) Description 02/19/2023 12:30 PM EDT Cardiac Studies [facility] [address] [place] [address] [place] [address] [place] [address] 02/19/2023 1:00 PM EDT Office Visit Cardiology [facility] [address] [place] [address] Manuel Ellis CRNP [address] [place], [place] [id number] Scheduled Orders Name Type Priority Associated Diagnoses Orde r Schedule EKG EKG Routine A-fib (HCC) Expected: 02/19/2023 (Approximate), Expi res: 02/19/2024 Health Maintenance Due Date Last Done Comments [...] Hepatitis B (1 of 3 - Risk 3 -dose series) 2012 Influenza Vaccine (FLU shot) (#1) 2022 GARDASIL-HPV IMMUNIZATION SERIES Aged Out No longer eligible based on patient's age to complete this topic MENINGOCOCCAL (MENACTRA/MENVEO) Aged Out No longer eligible based on patient's age to complete this topic documented as of this encounter Medical Devices Not on filedocumented as of this encounter Visit Diagnoses Diagnosis A-fib (HCC)- Primary Atrial fibrillation documented in this encounter Advance Directives Latest [...] Discussed due to patient's condition Care Teams Furnace Feeder Relationship Specialty Start Date End Date Malika Harris MD [address] [facility], [place] [address] PCP - General Internal Medicine 12/02/22 documented as of this encounter
--- OUTSIDE RECORDS SUMMARY | 2023-03-10 10:27 | External Medical Summary | Summary of Care ---
Author Name Unknown Organization [facility] Address [address] [place] [address] Phone [phone] Care Team Providers Care Double Surface Operator Name Role Phone Malika Harris MD Primary Care Provide r Reason for Visit * Reason Comments NEW PATIENT * Evaluate & Treat - Unlimited Visits (Within 30 days (routine)) - Authorized Specialty Diagnoses / Procedures Referred By Contjared t Referred To Contact Cardiovascular Medicine / Cardiology Diagnoses Atrial fibrillation (HCC) Nathan Lemus MD [address] [address] Referral ID Status Reason Start Date Expiration Date Visits Requested Visits Authorized [id number] Authorized Specialty Services Required 01/23/2023 01/24/[phone] Encounter Details Date Type Department Care Team (Latest Contact Info) Description 02/19/2023 1:00 PM EDT Office Visit Cardiology [facility] [address] [place] [address] Manuel Ellis CRNP [address] [place] [address] Persistent atrial fibrillation (HCC)*; HTN, goal below 130/80; Type 2 diabetes mellitus with hemoglobin A1c goal of less than 8.0% (HCC); Other right-sided nontraumatic intracerebral hemorrhage (HCC) Allergies No known active allergiesdocumented as of this encounter (statuses as of 03/02/2023) Medications Medication Sig Dispensed Refills Start Date [...] as of this encounter (statuses as of 03/02/2023) Active Problems Problem Noted Date Diagnosed Date Persistent atrial fibrillation 02/19/2023 HTN, goal below 130/80 02/19/2023 Type 2 diabetes mellitus wit h hemoglobin A1c goal of less than 8.0% 02/19/2023 Dyslipidemia 02/19/2023 BRIAN on CPAP 02/19/2023 documented as of this encounter (statuses as of 03/02/2023) Resolved Problems Problem Noted Date Diagnosed Date Resolved Date SDH (subdural hematoma) 12/05/202211/18 documented as of this encounter (statuses as of 03/02/2023) Social History Tobacco Use Types Packs/Day Years [...] or making decisions? (5 years old or older) No 12/02/2022 documented as of this encounter [...] intracranial hemorrhage. He [facility] Dr. Quesada and his anticoagulation [...] as far as chest pain, palpitations or changes in his breathing. He is overweight and does [...] HISTORY: 03/09/2019 DCC for persistent AF - [facility] Dr. Fields - started Eliquis 12/02/2022 intracranial bleed requiring evacuation here at [facility] 12/03/2022: Left frontal and [...] A1c goal of less than 8.0% (FORMERLY [facility]) Past Surgical History: Procedure Laterality Date LAP;REPAIR RECURRENT HERNIA Left OPEN SKULL FOR REMOVAL OF HEMATOMA Left 12/03/2022 CRANIOTOMY EVACUATION OF SUBDURAL OR EXTRADURAL HEMATOMA SUPRATENTORIAL performed by Lul Quesada, [place] OR [facility] Review of patient's allergies [...] provided the patient with the [facility] [employer] decision aid for AFIB [...] the performance of separately billed services. Manuel Ellis MSN, STRUCTURAL ENGINEERING PROJECT MANAGER Division of Cardiology/[place] [address] MC: [id number] 02/19/2023 1:35 PM I have reviewed the advanced practitioner documentation and agree. I saw and evaluated the patient on date of service referenced in note and have performed the following medically appropriate historyand/or exam: IMPRESSION: 1. Paroxysmal atrial fibrillation - onset 2018 2. CHADS-VASc= 3( age, hypertension, diabetes) 3. Intracranial hemorrhage - November 2022 - subdural hematoma, nontraumatic - on anticoagulation therapy COMMENT: With a CHADS VASc score of 3 in the setting of paroxysmal atrial fibrillation, he has a significant risk of a cardioembolic event. Anticoagulation is generally recommended. Unfortunately, hesuffered a subdural hematoma and there was understandably great hesitation to reinstitute anticoagul ation therapy. He meets implantation criteria for a left atrial appendage closure device (Watchman). Implantation of a device was recommended. We discussed the pathophysiology of atrial fibrillation and associated strokes, the indications for implantation of a Watchman device, the procedure and associated risks. He wishes to proceed. Shikha Brown IV, MD Cardiology/Electrophysiology Associate documented in this encounter Plan of Treatment [...] Discussed due to patient's condition Care Teams Double Surface Operator Relationship Specialty Start Date End Date Malika Harris MD [address] [place] [facility] [place] [address] PCP - General Internal Medicine 12/02/22 documented as of this encounter
--- OUTSIDE RECORDS SUMMARY | 2023-03-10 10:27 | External Medical Summary | Summary of Care ---
Author Name Unknown Organization [facility] Address [address] [place] [address] Phone [phone] Care Team Providers Care Golf Cart Attendant Name Role Phone Malika Harris MD Primary Care Provide r Reason for Visit * Reason Comments NEW PATIENT * Evaluate & Treat - Unlimited Visits (Within 30 days (routine)) - Authorized Specialty Diagnoses / Procedures Referred By Contjared t Referred To Contact Cardiovascular Medicine / Cardiology Diagnoses Atrial fibrillation (HCC) Nathan Lemus MD [address] [address] Referral ID Status Reason Start Date Expiration Date Visits Requested Visits Authorized [id number] Authorized Specialty Services Required 01/23/2023 01/24/[phone] Encounter Details Date Type Department Care Team (Late st Contact Info) Description 02/19/2023 1:00 PM EDT Office Visit Cardiology [facility] [address] [place] [address] Manuel Ellis CRNP [address] [place] [address] Persistent atrial fibrillation (HCC)*; HTN, goal below 130/80; Type 2 diabetes mellitus with hemoglobin A1c goal of less than 8.0% (HCC) Allergies No known active allergiesdocumented as of this encounter (statuses as of 02/19/2023) Medications Medication Sig Dispensed Refills Start Date [...] as of this encounter (statuses as of 02/19/2023) Active Problems Problem Noted Date Diagnosed Date Persistent atrial fibrillation 02/19/2023 HTN, goal below 130/80 02/19/2023 Type 2 diabetes mellitus wit h hemoglobin A1c goal of less than 8.0% 02/19/2023 Dyslipidemia 02/19/2023 BRIAN on CPAP 02/19/2023 documented as of this encounter (statuses as of 02/19/2023) Resolved Problems Problem Noted Date Diagnosed Date Resolved Date SDH (subdural hematoma) 12/05/202211/18 documented as of this encounter (statuses as of 02/19/2023) Social History Tobacco Use Types Packs/Day Years [...] intracranial hemorrhage. [facility] Q[facility]ada and his anticoagulation was [...] is treated with CPAP. CARDIAC HISTORY: 03/09/2019 [facility] persistent AF - [facility] Dr. Fields - started Ronna 12/02/2022 intracranial bleed requiring evacuation here at [facility] 12/03/2022: Left frontal and parietal naida-holes for [...] SUPRATENTORIAL performed by Lul Quesada, [place] OR [facility] Review of patient's allergies indicates: No Known [...] to fax thoseonce they do become available - Shared Decision Making Documentation for Watchman I provided the patient with the [facility] [employer] decision aid for AFIB [...] services. Manuel GARZA, ZACHERY Division of Cardiology/[place] [address] MC: [id number] 02/19/2023 1:35 PM documented in [...] Discussed due to patient's condition Care Teams Golf Cart Attendant Relationship Specialty Start Date End Date Malika Harris MD [address] [place] [address] PCP - General Internal Medicine 12/02/22 documented as of this encounter
[2023-03-10 10:31] LABS: Appearance Urine Clear (Clear); Bilirubin Urine Negative (Negative); Blood Urine Negative (Negative); Color Urine Yellow; Glucose Urine UA 3+ (Negative); Ketones Urine Negative (Negative); Leukocyte Esterase Urine Negative (Negative); Nitrite Urine Negative (Negative); Protein Urine Negative (Negative); Specific Gravity Urine 1.025 (1.000-1.030); Urobilinogen Urine Negative (Negative); pH Urine 5.5 (4.5-7.5)
[2023-03-10 10:36] LABS: BUN Creatinine Ratio 18.3 (10-20); Bilirubin Direct 0.1 mg/dl (0-0.2); Bilirubin,Total 0.6 mg/dl (0.2-1.0); Calcium 10.1 mg/dl (8.6-10.3); Creatinine Clr Calc Pharmacy 115.9 ml/min; Est GFR (African American) 110.2 ml/min; Est GFR (Non-African American) 95.1 ml/min; Magnesium 1.9 mg/dl (1.7-2.4); Potassium 3.7 mmol/L (3.5-5.1)
[2023-03-10 10:41] LABS: Troponin I High Sensitivity 2.7 pg/ml (0-20)
[2023-03-10 10:43] LABS: Prothrombin Time 10.9 Seconds (9.0-12.0)
--- NOTE | 2023-03-10 10:55 | CT Scan Report ---
CT head/brain wo con CLINICAL HISTORY: Ataxia Technique: Contiguous axial CT images of the head were acquired from the base of the skull to the kamron sandra without intravenous contrast administration. Images were viewed in brain, subdural and bone [facility]. Automated dose lowering techniques and/or adjustment according to patient size were utilized for this exam. Comparison: Comparison is made to CT head 12/02/2022 Findings: Previously noted left subdural hematoma is essentially resolved. No acute abnormality is seen. Imaged portions of the paranasal sinuses and mastoid air cells are clear. The orbits appear normal. Postsurgical changes are seen in the left calvarium. Impression: No acute abnormality. Previously noted left subdural hemorrhage has resolved. ACT 112: Negative or not required by law. Electronically signed by: Teddy Staton M.D. 03/10/2023 10:54 AM
[2023-03-10 10:57] LABS: Lyme Ab IgG w/WB Rflx Negative (Negative); Lyme Ab IgM w/WB Rflx Negative (Negative)
--- NOTE | 2023-03-10 12:09 | History & Physical Report ---
Date of Service March 10, 2023 Assessment & Plan (1) Stroke-like symptoms: Plan: New onset right handed dysgraphia and bilateral ataxia Patient with paroxysmal atrial fibrillation - currently in NSR Recent diagnosis of subdural hematomas in November 2022 CTA head/neck Brain MRI, will get TTE if stroke confirmed Consult neurology (2) History of subdural hematoma: Plan: Spontaneous while on Eliquis (3) Ataxia: (4) Mild obstructive sleep apnea: Plan: CPAP HS (5) Diabetes mellitus, type 2: Plan: HbA1C 7.6 in 03/2022, will repeat with AM labs Hold metformin Start Novolog for correction only, add Lantus if requiring frequent Novolog: --Goal BSG Range: Low 110 mg/dL, High 140 mg/dL --Correction Factor: 40 mg/dL/unit No carb ratio --BSGs ACHS if eating, q6h if npo Consider SGLT2 inhibitor on discharge (6) Atrial fibrillation status post cardioversion: Plan: No known episodes I can see he was confirmed back in a. fib since cardioversion in 2018. No a. fib on recent monitor but that was only for about 2 days. Concerning stroke like symptoms however currently in NSR but may have gone into a. fib with dehydration after chopping wood (7) HTN (hypertension): Plan: Holding lisinopril in setting of suspected stroke to allow permissive hyeprtension (8) Hyperlipidemia: Plan: Switch to high intensity statin if stroke confirmed Plan VTE Prophylaxis - chemical deferred due to history of subdural and likely need for antiplatelet/anticoagulation Diet - heart healthy Disposition - observation to PCU Admission and Anticipated Discharge Date Admission Date: March 10, 2023 History of Present Illness Chief Complaint: Ataxia Primary Care Provider: Malika Harris MD Zander John is a 72 year old male with significant history of spontaneous subdural hematoma on Eliquis (11/2022), endocarditis on CPAP, diabetes, paroxysmal atrial fibrillation (currently off anticoagulation) who presents to the ER with ataxia and difficulty writing with his right hand. He reports last known well at around 7pm last night. He notes good strength in both legs but having difficulty with his balance. No change in speech, vision or hearing. No extremity weakness or change in sensation. No change in symptoms or improvement since yesterday. He was incidentally diagnosed with a. fib and a controlled rate before a colonoscopy in 2019 and started on anticoagulation at that time. Underwent successful electrical cardioversion in February 2019 with improvement in his exercise tolerance and stamina. No known events of atrial fibrillation since that time but he was also asymptomatic when initially diagnosed. He was diagnosed with a spontaneous subdural hematoma while on Eliquis in November 2022, life-flighted to [facility] where he underwent neurosurgical evacuation of the hematoma. Per last neurosurgery note ok to resume Eliquis but with understanding there is a risk of suffering from further intracranial bleeding events. He followed up with Dr Lemus in December and questioned a Watchman vs. abstinence if low a. fib burden - notably this night monitor for 1d17h did not show any atrial fibrillation. He is in normal sinus rhythm today. Allergies Allergy/AdvReac Type Severity Reaction Status Date / Time No Known Allergies Allergy Verified 03/10/23 15:39 Home Medications Medication Instructions Recorded Confirmed Type albuterol sulfate 90 mcg/actuation 1 puffs inhalation DIRECTED PRN 12/02/18 03/10/23 History aerosol inhaler Shortness Of Breath Or Wheezing #1 g lancets (Accu-Chek Fastclix Lancet #100 ea 07/17/20 12/15/22 Rx Drum) simvastatin 20 mg tablet 20 mg PO HS #90 tabs 02/12/22 03/10/23 Rx lisinopril 20 mg tablet 20 mg PO QAM #90 tabs 10/16/22 03/10/23 Rx metformin 500 mg tablet,extended See Rx Instructions .Route 10/22/22 03/10/23 Rx release 24 hr .COMPLEX #180 tabs Accu-Chek Mami Plus test strp #100 ea 12/15/22 12/15/22 Rx (blood sugar diagnostic) blood-glucose meter (Accu-Chek #1 ea 12/17/22 Rx Guide Glucose Meter) amlodipine 5 mg tablet 5 mg PO QAM 03/10/23 03/10/23 History Past Med/Surg History Medical History Benign positional vertigo Chronic obstructive pulmonary disease Diabetes mellitus, type 2 Disc disorder of cervical region Endocarditis Hyperlipidemia Hypertension FDC current use of anticoagulant Mild intermittent asthma without complication Mild obstructive sleep apnea Nocturnal hypoxemia Subchondral cyst Viral wart, unspecified Surgical History Hernia History of colonoscopy History of herniorrhaphy Family History Sister Diabetes Hypertension Brother Diabetes Hypertension Father Myocardial infarction Hypertension Uncle Myocardial infarction Mother Ovarian cancer Hypertension Denies family history of Prostate cancer Breast cancer Lung cancer Colorectal cancer Stroke Social History Smoking Status: Never smoker Second Hand Exposure: No; Do You Dip or Chew Tobacco: No; Hx Alcohol Use: No Hx Substance Use: No Preferred Language: Turkmen Communication Ability: Effective Visual Impairment: Limited Hearing Ability: Normal Investment Director Required: No Beliefs That Will Affect Care: None marital status: Current Living Situation: Spouse current occupational status: retired How many Children do You have: 0 Other Information That Helps Us Care for You: No Feels Safe at Home: Yes Safety Concerns: Feels Safe At This Time Childhood Exposure to Second-Hand Smoke: Yes caffeine: Yes Dental Care, Regularly: No Physical Activity Frequency: 3-4 Times per Week Seatbelt Use: always Sunscreen Use: Yes Assistive Devices: None Review of Systems Review of Systems: All systems reviewed & are unremarkable except as noted in HPI & below Physical Exam Constitutional: WD/WN, vitals as above Eyes: PERRL, conjunctivae normal, anicteric sclerae ENMT: external ear and nose normal, oropharynx normal Neck: trachea midline, no thyromegaly Respiratory: normal respiratory effort, lungs clear to auscultation Cardiovascular: RRR, no murmur, no edema Gastrointestinal (Abdomen): normal bowel sounds, soft, nontender, no hepatosplenomegaly Musculoskeletal: no cyanosis or clubbing, extremities motor strength 5/5 Skin: no rashes, warm and dry Neurologic: moves all extremities and awake; no focal motor deficits and not confused Speech / Cognition: normal speech Motor/Sensory: no tremor, no pronator drift and no sensory deficit Cranial Nerves: sense of smell intact, PERRL, EOM intact bilaterally, normal facial strength, tongue midline, able to rotate head bilaterally, able to elevate shoulders bilaterally, no nystagmus and symmetric palate elevation Coordination: normal [id number] test Psychiatric: A+Ox3, euthymic affect Genitourinary: no CVA tenderness Results & Data Results & Data Vital Signs (Past 12 Hours) Vital Signs Temp Pulse Pulse Resp BP BP Pulse Ox 03/10/23 10:04 59 L 03/10/23 10:00 60 18 178/87 H 96 03/10/23 09:12 36.0 C L 58 L 16 182/85 H 98 03/10/23 09:06 95 O2 Del Method 03/10/23 10:04 03/10/23 10:00 Room Air 03/10/23 09:12 Room Air 03/10/23 09:06 Room Air Laboratory Results Abnormal lab results 03/10/23 03/10/23 Range/Units 10:12 Unknown WBC 3.83 L (4.8-10.8) K/ul Lymph # (Auto) 1.15 L (1.20-3.40) K/uL Glucose 139 H (70-99(Fasting)) mg/dl POC Glucose 124 H (70-99) mg/dl Urine Glucose (UA) 3+ H (Negative) Diagnostic Findings CT head/brain wo con CLINICAL HISTORY: Ataxia Technique: Contiguous axial CT images of the head were acquired from the base of the skull to the vertex without intravenous contrast administration. Images were viewed in brain, subdural and bone windows. Automated dose lowering techniques and/or adjustment according to patient size were utilized for this exam. Comparison: Comparison is made to CT head 12/02/2022 Findings: Previously noted left subdural hematoma is essentially resolved. No acute abnormality is seen. Imaged portions of the paranasal sinuses and mastoid air cells are clear. The orbits appear normal. Postsurgical changes are seen in the left calvarium. Impression: No acute abnormality. Previously noted left subdural hemorrhage has resolved. Medications Administered ER Medications Given: None ECG Rate (beats per minute): 59 Rhythm: sinus bradycardia Findings: no acute ischemic change Comparison ECG Date: from (December 02, 2022) Change: no significant change Code Status & VTE Plan Code Status Full VTE Prophylaxis Plan VTE Prophylaxis will be ordered: No PG Care Time/CCT Total # of Minutes Spent Total Time Spent with Patient: Total time spent is greater than 50% in coordination of care (as documented) at patient's floor/unit and/or counseling patient: Coding Level of Care Code 21383 INT INP/OBS CARE 3/75MIN Diagnoses Stroke-like symptoms R29.90 History of subdural hematoma Z86.79 Ataxia R27.0 Mild obstructive sleep apnea G47.33 Diabetes mellitus, type 2 E11.9 Atrial fibrillation status post cardioversion I48.91 Essential hypertension I10 Hypertension type: essential hypertension Hyperlipidemia, unspecified hyperlipidemia type E78.5 Hyperlipidemia type: unspecified (7) HTN (hypertension) Hypertension type: essential hypertension Qualified Code(s): I10 - Essential (primary) hypertension (8) Hyperlipidemia Hyperlipidemia type: unspecified Qualified Code(s): E78.5 - Hyperlipidemia, unspecified
[2023-03-10 12:58] LABS: Partial Thromboplastin Time 26.8 Seconds (21.0-31.0)
[2023-03-10] MEDS ORDERED: OPTIRAY 320 125ml IV ONE (13:23)
--- NOTE | 2023-03-10 13:53 | CT Scan Report ---
NECK CTA HISTORY: new onset Dysgraphia, right handed TECHNIQUE: Multiaxial CT images of the neck were performed following the intravenous administration o f contrast to evaluate the major cervical vessels. 3D/MIP images were also obtained. Sagittal and cor onal reformats were reviewed. All measurements were calculated based on NASCET criteria. A dose low ering technique was utilized adhering to the principles of ALA. COMPARISON STUDY: None. FINDINGS: The aortic arch and proximal great vessels are widely patent. There is no significant sten osis, occlusion, or dissection identified within the bilateral common carotid, internal carotid, or v ertebral arteries. Mild to moderate calcified plaque within the bilateral carotid bulbs. IMPRESSION: No significant stenosis, occlusion, or dissection identified within the carotid or vertebral arteries . ACT 112: Negative or not required by law. Electronically signed by: Clay Shannon M.D. 03/10/2023 1:50 PM
--- NOTE | 2023-03-10 14:01 | CT Scan Report ---
CT ANGIOGRAM OF THE BRAIN CLINICAL HISTORY: Dysgraphia. COMPARISON STUDY: Unenhanced CT of the brain performed the same day 03/10/2023. TECHNIQUE: Following the IV administration of 115 cc of Optiray 320, CT angiogram of the brain was pe rformed from the skull base to the vertex. Images are reviewed in the axial, sagittal, and coronal pl anes. 3-D MIPS images are created and assessed. IV contrast was administered without complication. A dose lowering technique was utilized adhering to the principles of ALARA. FINDINGS: Brain parenchyma: There is age-related involutional change noting mild to moderate subcortical and pe riventricular microangiopathic disease. There is no evidence of hemorrhage, mass effect, or acute ter ritorial ischemia noting angiographic phase technique. There is no evidence of enhancing mass lesion on the angiogram phase images. No extra-axial fluid collection is seen. There is a small residual/ ch ronic appearing extra-axial fluid collection along the high left convexity seen on axial image #190. This likely represents a small chronic subdural hematoma. Ventricles, sulci, and cisterns: Prominent secondary to involutional change. CT angiogram of the brain: There is atherosclerotic calcification of the cavernous carotid and verteb ral arteries. The internal carotid arteries are widely patent, as are the anterior and middle cerebra l arteries. The vertebrobasilar system and posterior cerebral arteries are widely patent. The left ve rtebral artery is dominant. The right P1 segment is diminutive. There are bilateral posterior communi cating arteries. There is no aneurysm, high-grade stenosis, or focal vessel cutoff identified through out the intracranial circulation. Dural sinuses: Clear as visualized. Orbits: The bony orbits are intact. The orbital contents are normal as visualized. Sinuses and mastoids: The visualized paranasal sinuses are clear. The mastoid air cells are well pneu matized. Calvarium: There are 2 left-sided naida holes. No destructive calvarial lesion is seen. IMPRESSION: 1. There is no evidence of acute hemorrhage, mass effect, or territorial ischemia noting angiographic phase technique. 2. There is a small residual extra axial fluid collection along the high left convexity. This likely represents a chronic subdural hematoma and measures up to 5 mm in thickness. 3. Unremarkable CT angiogram of the brain. ACT 112: Negative or not required by law. Electronically signed by: Nolan Tierney M.D. 03/10/2023 1:59 PM
[2023-03-10] MEDS ORDERED: ACETAMINOPHEN 325 MG TAB PO PRN (15:27)
--- NOTE | 2023-03-10 17:53 | Magnetic Resonance Report ---
Brain MRI WITHOUT CONTRAST HISTORY: new onset dysgraphia (right handed), ataxia ?CVA TECHNIQUE: Multiplanar multisequence MRI of the brain was performed without the use of contrast. COMPARISON STUDY: Head CT 03/10/2023. FINDINGS: A cluster of small foci of restricted diffusion within the left parietal periventricular lo cation consistent with acute infarcts. These small adjacent foci of restricted diffusion measure up t o 1 cm. Left-sided naida holes are again noted. The midline structures are intact. The ventricles and sulci demonstrate mild age-related involutional changes. No mass or midline shift. Minimal microvascu lar ischemic changes are present. Small left-sided subdural fluid collection measuring up to 4 mm in thickness. This favors a subacute to chronic subdural hematoma. This is deep to the naida holes. The o rbits are unremarkable. The paranasal sinuses and mastoid air cells are clear. The major vascular keaton w voids at the skull base are well-maintained. IMPRESSION: 1. A cluster of small acute infarcts within the left parietal lobe. 2. Small left-sided subdural fluid collection measuring 4 mm in thickness. This favors a subacute to chronic subdural hematoma. [address] follow-up recommended to ensure stability. 3. No midline shift or significant mass effect. ACT 112: Negative or not required by law. Electronically signed by: Clay Shannon M.D. 03/10/2023 5:51 PM
[2023-03-10] MEDS ORDERED: CARBOHYDRATES FOR HYPOGLYCEMIA PO PRN (19:42)
[2023-03-10] MEDS ORDERED: DEXTROSE 50% 50 ML SYRINGE IV PRN (19:42)
[2023-03-10] MEDS ORDERED: GLUCOSE 10 TAB/TUBE PO PRN (19:42)
[2023-03-10] MEDS ORDERED: GLUCOSE 40% GEL 15 GM TUBE PO PRN (19:42)
[2023-03-10] MEDS ORDERED: GLUCAGON FOR INJ 1 MG VIAL SQ PRN (19:42)
[2023-03-10] MEDS: ASPIRIN 81 MG ECTAB PO SCH (20:52)
[2023-03-10] MEDS: INSULIN ASPART PER UNIT CHARGE SC SCH (20:52)
[2023-03-11] MEDS ORDERED: PHARMACIST DISCHARGE MED REC CONSULT PRN (00:05)
[2023-03-11 06:05] LABS: Basophils # (auto) 0.05 K/uL (0.00-0.20); Basophils % (auto) 1.1 %; Eosinophils # (auto) 0.29 K/uL (0.00-0.50); Eosinophils % (auto) 6.5 %; Hematocrit (blood only) 42.3 % (42.0-52.0); Hemoglobin 15.1 g/dl (14.0-18.0); Immature Granulocytes # (auto) 0.01 K/uL (0.01-0.20); Immature Granulocytes % (auto) 0.2 %; Lymphocytes % (auto) 27.1 %; Mean Corpuscular Hemoglobin 29.3 pg (25.0-34.0); Mean Corpuscular Hgb Conc 35.7 g/dL (32.0-36.0); Mean Corpuscular Volume 82.1 fL (80.0-100.0); Mean Platelet Volume 10.4 fL (9.4-12.4); Monocytes # (auto) 0.42 K/uL (0.11-0.59); Monocytes % (auto) 9.5 %; Neutrophils # (auto) 2.46 K/uL (1.40-6.50); Neutrophils % (auto) 55.6 %; Platelet Count 150 K/uL (130-400); RDW Coefficient of Variation 12.5 % (11.5-14.5); RDW Standard Deviation 37.7 fL (36.4-46.3); Red Blood Count 5.15 M/uL (4.70-6.10); White Blood Count 4.43 K/ul (4.8-10.8)
[2023-03-11 06:20] LABS: BUN Creatinine Ratio 19.2 (10-20); Calcium 9.3 mg/dl (8.6-10.3); Chol HDL Ratio 3.2 (0-5); Creatinine Clr Calc Pharmacy 102.1 ml/min; Est GFR (Non-African American) 91.5 ml/min; Potassium 3.9 mmol/L (3.5-5.1)
[2023-03-11 07:25] LABS: Estimated Average Glucose 180 mg/dl; Hemoglobin A1C 7.9 % (4.5-5.6)
[2023-03-11] MEDS: ASPIRIN 81 MG ECTAB PO SCH (08:48)
[2023-03-11] MEDS ORDERED: ATORVASTATIN 40 MG TAB PO SCH (09:00)
--- NOTE | 2023-03-11 09:10 | Neurology Consultation ---
Date of Consultation March 11, 2023 Assessment & Plan (1) Acute CVA (cerebrovascular accident): (2) HTN (hypertension): (3) Diabetes mellitus, type 2: (4) Atrial fibrillation status post cardioversion: (5) History of subdural hematoma: Plan This patient had an acute tiny left (3 tiny, clustered deep white matter) parietal stroke March 09. It left him with some mild right-sided weakness/clumsiness which is already improving by today. His gait is a little slow and unsteady but there is no ataxia noted. He is not actually weak and has no other focal findings. The etiology of this acute stroke is likely ischemic in nature. Risk factors would be high blood pressure and diabetes. He actually has minimal old small- vessel ischemic disease otherwise seen on MRI. Patient does have a history of atrial fibrillation but he is not been in AFib, as far as I can gather from records, since his cardioversion in 2018. He was on anticoagulation for years and had a spontaneous, significant left acute on chronic subdural hematoma requiring naida hole evacuation in November of this year. He has been doing quite well and a CT and MRI recently have shown minimal residual chronic hematoma on the left. CT angiography showed no large or medium vessel issues in the head or neck. Recommendations: 1. Control blood pressure as you are doing, aiming for a mean arterial pressure of 95-100. 2. Control glucose, aiming for a hemoglobin A1c of less than 7. 3. Total cholesterol of 132 is as low as need be for this patient and his history. Continue simvastatin 20 mg daily 4. Physical and occupational therapy consults. He needs gait training/strengthening 5. Awaiting echocardiogram results 6. Continue 81 mg aspirin tablet daily, to help prevent small-vessel ischemic disease. There is no indication for anticoagulation at this time. 7. Follow-up with PCP, please contact me if I can be of further assistance. Overall, I spent a total of 90 minutes with this case including review of records, review of CT and MRI films, direct evaluation the patient at bedside, report generation, and discussion of the case with the patient and RN at bedside, and Dr. Hathaway, including differential diagnosis and treatment options. History of Present Illness Reason for Consultation: Patient is a 72-year-old, who I was asked to see at the request of Dr. Gonzalez, for neurologic consultation regarding stroke Requesting Physician: Dr. Gonzalez Attending Physician: Raven Hathaway MD History of Present Illness This patient has a history of hypertension and diabetes for years. He also has COPD and dyslipidemia as well as sleep apnea on CPAP. In 2018, the patient had onset of atrial fibrillation. In February of that year, he underwent a successful electrical cardioversion in 2 normal sinus rhythm. As far as is known, he has been in normal sinus rhythm and has not had any further episodes of atrial fibrillation. However, the patient was on Eliquis since that time. In November of this year, the patient had some issues with gait disturbance, memory problems, and headaches. He came to the emergency room December 02 and had an acute on chronic subdural hematoma with compression and midline shift. He was sent to [facility] in [place] and on December 03 had left frontal and left parietal naida holes with removal of old blood. He did well off the anticoagulant ever since. He is scheduled for a Watchman procedure in April of 2023. He is remained off anticoagulation. Around 7:00 p.m. on March 09, he had the sudden onset of walking problems with the right foot dragging. There was no pain or numbness. He woke the morning of March 10 around 0500 and continued to have clumsiness and weakness of his right foot and noticed his right hand was not functioning well and he could not write with his hand (also clumsy). He had no speech or mentation problem, headache, vision issue, or left-sided problem. He arrived to the emergency room at 0912 on March 10 with a temperature 36.0, pulse 58 and regular, respiratory rate 16, blood pressure 182/85, and O2 saturation 98%. Neurologic examination showed some gait issue secondary to right leg weakness. Blood pressure is 145/90. CT scan of the head showed a near complete resolution of the left hematoma (slight residual high left convexity). CT angiography of the head neck were unremarkable without significant vascular stenoses or anomalies. MRI of the brain showed 3 tiny acute strokes clustered together in the left parietal periventricular white matter. There was no edema and no hemorrhage. MRI did show a residual 5 mm sliver of old blood high on the left convexity. I reviewed all of the CT and MRI films Echocardiogram is pending. CBC and Chem profile were unremarkable except for a mildly elevated glucose. Total cholesterol was 132 and triglycerides 96. Hemoglobin A1c was 7.9. Lyme antibody titer and urinalysis were unremarkable. Blood pressure this morning is 145/90. He feels that he is a little bit better with his hand and foot on the right compared to yesterday. Allergies Allergy/AdvReac Type Severity Reaction Status Date / Time No Known Allergies Allergy Verified 03/10/23 15:39 Home Medications Medication Instructions Recorded Confirmed Type albuterol sulfate 90 mcg/actuation 1 puffs inhalation DIRECTED PRN 12/02/18 03/10/23 History aerosol inhaler Shortness Of Breath Or Wheezing #1 g lancets (Accu-Chek Fastclix Lancet #100 ea 07/17/20 12/15/22 Rx Drum) simvastatin 20 mg tablet 20 mg PO HS #90 tabs 02/12/22 03/10/23 Rx lisinopril 20 mg tablet 20 mg PO QAM #90 tabs 10/16/22 03/10/23 Rx metformin 500 mg tablet,extended See Rx Instructions .Route 10/22/22 03/10/23 Rx release 24 hr .COMPLEX #180 tabs Accu-Chek Mami Plus test strp #100 ea 12/15/22 12/15/22 Rx (blood sugar diagnostic) blood-glucose meter (Accu-Chek #1 ea 12/17/22 Rx Guide Glucose Meter) amlodipine 5 mg tablet 5 mg PO QAM 03/10/23 03/10/23 History Patient History Medical History Mild obstructive sleep apnea Viral wart, unspecified Disc disorder of cervical region Mild intermittent asthma without complication Subchondral cyst Nocturnal hypoxemia Diabetes mellitus, type 2 Chronic obstructive pulmonary disease 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 Hyperlipidemia Hypertension Benign positional vertigo Surgical History History of colonoscopy X 3 History of herniorrhaphy Hernia Family History Sister Diabetes Hypertension Brother Diabetes Hypertension Father Myocardial infarction Hypertension Uncle Myocardial infarction Mother Ovarian cancer Hypertension Denies family history of Prostate cancer Breast cancer Lung cancer Colorectal cancer Stroke Social History (Updated 03/11/23 @ 09:01 by Harjit Fermin MD) Smoking Status: Former smoker Age Started Using Tobacco: 24; Age Quit Using Tobacco: 32; Second Hand Exposure: No; Do You Dip or Chew Tobacco: No; Hx Alcohol Use: Yes Alcohol type: beer Alcohol Intake Frequency: Monthly or Less Hx Substance Use: No Preferred Language: Tamazight Communication Ability: Effective Visual Impairment: Limited Hearing Ability: Normal Document Improvement Specialist Required: No Beliefs That Will Affect Care: None marital status: Current Living Situation: Spouse current occupational status: retired current occupation: Former construction sales manager, current part-time [employer] How many Children do You have: 0 Feels Safe at Home: Yes Childhood Exposure to Second-Hand Smoke: Yes caffeine: Yes Dental Care, Regularly: No Physical Activity Frequency: 3-4 Times per Week Seatbelt Use: always Sunscreen Use: Yes Assistive Devices: None Review of Systems Constitutional: no fever, no fatigue and no weakness Eyes: no diplopia, no eye pain and no worsening vision Ear, Nose, Mouth, Throat: no ear pain, no tinnitus, no hearing loss, no dizziness, no snoring, no hoarseness and no dysphagia Respiratory: no cough and no dyspnea Cardiovascular: no chest pain, no palpitations and no lightheadedness Gastrointestinal: no abdominal pain, no nausea and no vomiting Musculoskeletal: no back pain, no neck pain, no radicular pain, no joint pain and no myalgia Integumentary: no rash and no lesions Neurologic: + gait abnormality and + localized weakn ess; no generalized weakness, no tingling, no numbness, no tremor(s), no abnormal movements, no headache(s), no abnormal speech, no confusion and no memory loss Psychiatric: no depression, no irritability, no anxiety, no difficulty concentrating, no confusion and no hallucinations Endocrine: no fatigue and no flushing Hematologic / Lymphatic: no easy bleeding and no easy bruising Allergy / Immunological: no urticaria and no problem reported Exam (Neuro) Physical Exam: The patient is right-handed. The patient is awake, alert, and attentive. Speech is normal without any aphasia or dysarthria. The patient can name objects, repeat phrases, and has normal spontaneous speech. Mentation and thought processes are intact, with orientation to person, place and time, and normal fund of knowledge. Attention and concentration are normal. Mood and affect are normal and appropriate. General appearance and grooming are normal. Short and long-term memory are intact. Pupils are 3 mm bilaterally and reactive to light. Extraocular eye muscles are intact without nystagmus. Visual acuity and visual alavrado seem normal grossly to confrontation. There are no deficits to sensation in the face in all 3 distributions of the fifth cranial nerve bilaterally. Corneal reflexes are positive bilaterally. Facial strength and symmetry was normal bilaterally. Hearing seems normal bilaterally. Palate moves well without asymmetry. There is normal sternocleidomastoid and trapezius (shoulder shrug) strength bilaterally. Tongue is midline with good strength bilaterally. Neck has a full range of motion without discomfort. There are no cervical bruits bilaterally. There are no cranial or ocular bruits. Heart is without murmur. There is a regular rhythm and rate. Cervical, thoracic, and lumbar spine are nontender to palpation. Gait is narrow based, but somewhat slow and cautious favoring the right leg. Arms do swing and turns are slow and cautious. Stance with feet together and eyes open is good With outstretched arms there is a very mild drift on the right but not the left. There are no resting, postural, or action tremors. There is no ataxia with finger to nose testing. There is good facility in the hands. No other abnormal involuntary movements are noted. The right foot is clumsy compared to the left foot. Motor strength is 5/5 diffusely in the arms bilaterally including deltoids, biceps, triceps, brachioradialis, wrist flexors and extensors, director of market analysis, and intrinsic hand muscles. Motor strength is 5/5 diffusely in the legs bilaterally including hip flexors, quadriceps, hamstrings, gastrocnemius, tibialis anterior, tibialis posterior, and Peroneii muscles. Toe extensors are normal and there is good bulk in the extensor digitorum brevis muscles bilaterally. Therefore, I found no focal weakness The limbs have good tone without rigidity or spasticity. There is no atrophy noted in the muscles. Muscle bulk is normal, there is no tenderness to palpation, no myotonia to percussion, and no fasciculations seen. Sensory examination is intact to touch and pin throughout all 4 limbs diffusely. Reflexes are 1/4 in the biceps, triceps, brachioradialis, quadriceps, and Achilles tendons bilaterally. There is no clonus bilaterally. Toes are downgoing with plantar stimulation bilaterally. Peripheral pulses are present and of normal quality distally in all 4 limbs. There is no peripheral edema noted in the limbs. Results & Data Vital Signs (Past 12 Hours) Vital Signs Temp Pulse Pulse Resp BP BP Pulse Ox 03/11/23 07:43 36.3 C L 60 18 145/90 H 95 03/11/23 06:04 36.9 C 57 L 16 148/77 H 96 03/11/23 04:17 58 L 03/11/23 03:45 57 L 19 94 03/11/23 03:00 55 L 22 94 03/11/23 02:00 59 L 22 96 03/11/23 01:00 56 L 21 92 03/11/23 00:01 56 L 16 95 03/11/23 00:00 57 L 20 118/75 93 03/10/23 23:50 56 L 17 93 03/10/23 23:00 55 L 18 93 03/10/23 22:58 56 L 03/10/23 22:00 60 25 H 96 03/10/23 21:00 63 26 H 91 O2 Del Method 03/11/23 07:43 Room Air 03/11/23 06:04 Room Air 03/11/23 04:17 03/11/23 03:45 03/11/23 03:00 03/11/23 02:00 03/11/23 01:00 03/11/23 00:01 03/11/23 00:00 03/10/23 23:50 03/10/23 23:00 03/10/23 22:58 03/10/23 22:00 03/10/23 21:00 PG Care Time/CCT Total # of Minutes Spent Total Time Spent with Patient: Total time spent is greater than 50% in coordination of care (as documented) at patient's floor/unit and/or counseling patient: Coding Level of Care Code 76126 INT INP/OBS CARE 3/75MIN Diagnoses Acute CVA (cerebrovascular accident) I63.9 Essential hypertension I10 Hypertension type: essential hypertension Diabetes mellitus, type 2 E11.9 Atrial fibrillation status post cardioversion I48.91 History of subdural hematoma Z86.79 Time Spent (min) 90 (2) HTN (hypertension) Hypertension type: essential hypertension Qualified Code(s): I10 - Essential (primary) hypertension
[2023-03-11] MEDS: INSULIN ASPART PER UNIT CHARGE SC SCH ×2 (09:16→12:06)
--- NOTE | 2023-03-11 10:25 | Pharmacy Report ---
- Date of Service March 11, 2023 - Pharmacy CVA/TIA Medication Review Medications to Prevent Stroke handout has been added to the patients discharge packet. Antiplatelet(s) * Aspirin 81 mg daily Cholesterol * High intensity statin: atorvastatin 40 mg daily DVT Prophylaxis * Pharmacologic and mechanical DVT prophylaxis deferred due to recent admission Therapeutic Anticoagulation * Hx Afib/Aflutter noted though patient had successful cardioversion in 2018. Patient was on Eliquis until November of this year when he had an acute on chronic subdural hematoma requiring intervention. He is to have a Watchman procedure in 2023. Type 2 Diabetes * Patient has T2DM, but per Dr Hathaway, a diabetes medication with proven CVD benefit will be deferred to their outpatient provider due to familiarity with risks/benefits of such therapies. "Medications to prevent stroke" handout has already been added to the patient's discharge packet, which instructs the patient to follow up with their outpatient provider to evaluate which diabetes medication with proven CVD benefit is best for them
[2023-03-11] MEDS ORDERED: STROKE PATIENT DISCHARGE STA (11:39)
--- NOTE | 2023-03-11 14:43 | Discharge Summary ---
Date of Service March 11, 2023 Admission HPI Per Admitting Provider Zander John is a 72 year old male with significant history of spontaneous subdural hematoma on Eliquis (11/2022), endocarditis on CPAP, diabetes, paroxysmal atrial fibrillation (currently off anticoagulation) who presents to the ER with ataxia and difficulty writing with his right hand. He reports last known well at around 7pm last night. He notes good strength in both legs but having difficulty with his balance. No change in speech, vision or hearing. No extremity weakness or change in sensation. No change in symptoms or improvement since yesterday. He was incidentally diagnosed with a. fib and a controlled rate before a colonoscopy in 2018 and started on anticoagulation at that time. Underwent successful electrical cardioversion in February 2019 with improvement in his exercise tolerance and stamina. No known events of atrial fibrillation since that time but he was also asymptomatic when initially diagnosed. He was diagnosed with a spontaneous subdural hematoma while on Eliquis in November 2022, life-flighted to [facility] where he underwent neurosurgical evacuation of the hematoma. Per last neurosurgery note ok to resume Eliquis but with understanding there is a risk of suffering from further intracranial bleeding events. He followed up with Dr Lemus in December and questioned a Watchman vs. abstinence if low a. fib burden - notably this air sampling and monitoring for 1d17h did not show any atrial fibrillation. He is in normal sinus rhythm today. Principal Diagnosis acute stroke Discharge Exam The patient is awake, alert and oriented 3, well developed and well nourished, normocephalic and atraumatic, lying in bed and in no acute distress. HEENT--PERRL, EOMI, mucous membranes and oropharynx mildly dry Neck--supple. No JVD. No bruits. Thyroid normal, trachea midline, no adenopathy. Heart--normal S1 and S2. No murmurs, rubs or gallops. Lungs--clear bilaterally, no respiratory distress, no accessory muscle use. Abdomen--normal bowel sounds and soft. Mild epigastric and left sided abdominal pain Extremities--no cyanosis or clubbing. No edema. Dermatologic--normal skin turgor, normal color, no abnormal lymph nodes, no rash. Neurologic--cranial nerves II through XII grossly intact. Rheumatologic--normal range of motion. Psychiatric--normal affect. Discharge Data Allergies Allergy/AdvReac Type Severity Reaction Status Date / Time No Known Allergies Allergy Verified 03/10/23 15:39 Consultations 03/10/23 11:59 ED Decision to Admit Stat 03/11/23 00:05 Consult Neurology Routine Ordered Studies 03/10/23 09:26 CT head/brain wo con Stat 03/10/23 11:59 CT angio head w con Stat CT angio neck with con Stat 03/10/23 12:03 MRI Brain [MR brain wo con] Stat Hospital Course (1) Stroke-like symptoms: New onset right handed dysgraphia and bilateral ataxia Patient with paroxysmal atrial fibrillation - currently in NSR Recent diagnosis of subdural hematomas in November 2022 CTA head/neck did not showa ny vessel occlusion Brain MRI,A cluster of small acute infarcts within the left parietal lobe Consult neurology, recommend ASA and Statin D/C home with PT (2) History of subdural hematoma: Spontaneous while on Eliquis (3) Ataxia: (4) Mild obstructive sleep apnea: CPAP HS (5) Diabetes mellitus, type 2: HbA1C 7.6 in 03/2022, will repeat with AM labs Hold metformin Start Novolog for correction only, add Lantus if requiring frequent Novolog: --Goal BSG Range: Low 110 mg/dL, High 140 mg/dL --Correction Factor: 40 mg/dL/unit No carb ratio --BSGs ACHS if eating, q6h if npo Consider SGLT2 inhibitor on discharge (6) Atrial fibrillation status post cardioversion: No known episodes I can see he was confirmed back in a. fib since cardioversion in 2019. No a. fib on recent monitor but that was only for about 2 days. Concerning stroke like symptoms however currently in NSR but may have gone into a. fib with dehydration after chopping wood (7) HTN (hypertension): Holding lisinopril in setting of suspected stroke to allow permissive hyeprtension (8) Hyperlipidemia: Switch to high intensity statin if stroke confirmed Plan VTE Prophylaxis - chemical deferred due to history of subdural and likely need for antiplatelet/anticoagulation Diet - heart healthy Disposition - observation to PCU Total Time Total Time Spent Total Time Spent (In Minutes): 35 Discharge Plan Discharge Items Patient Disposition: Home - Self-Care Reason For Visit: STROKE-LIKE SYMPTOMS Discharge Diagnosis: acute stroke Activity: Resume your previous activity Non-emergency contact: Primary Care Provider and Neurologist Call non-emergency contact if: you have any medication questions Follow-up/Referrals: Malika Harris MD [Primary Care Provider] - 03/16/23 11:00 am Diet: Regular Addtl Attending Provider Instructions: please follow up with your regular PCP and neurology Pending Studies at Discharge: No Stand-Alone Forms: My [facility], Smoking Cessation, Medications to Prevent Stroke Medications and DC Order Prescriptions: New aspirin 81 mg Tablet,Delayed Release (Dr/Ec) 81 mg PO QAM 30 Days Qty: 30 0RF Continued (DME) lancets [Accu-Chek Fastclix Lancet Drum] Misc See Rx Instructions .ROUTE .MEDSUPPLY Qty: 100 3RF Rx Instructions: TEST FASTING GLUCOSE MON, WED, THU, AND 2 HOURS AFTER LARGEST MEAL ON AND DX: E11.9 simvastatin 20 mg tablet 20 mg PO HS Qty: 90 3RF lisinopril 20 mg tablet 20 mg PO QAM Qty: 90 1RF metformin 500 mg tablet extended release 24 hr See Rx Instructions .ROUTE .COMPLEX Qty: 180 3RF Rx Instructions: 1 tablet in the morning and 2 tablets in the evening; (DME) blood-glucose meter [Accu-Chek Guide Glucose Meter] [facility] See [facility] Instructions .Route Qty: 1 0RF Rx Instructions: Test fasting glucose Thursday, Thursday, Thursday and 2 hours after largest meal on Thursday and albuterol sulfate 90 mcg/actuation HFA aerosol inhaler 1 puffs inhalation DIRECTED PRN (Reason: Shortness Of Breath Or Wheezing) Qty: 1 (DME) Accu-Chek Mami Plus test strp Strip See Rx Instructions .ROUTE .MEDSUPPLY Qty: 100 3RF Rx Instructions: TEST FASTING GLUCOSE MON, WED, THU, AND 2 HOURS AFTER LARGEST MEAL ON AND DX: E11.9 amlodipine 5 mg tablet 5 mg PO QAM Rx Instructions: TAKE 1 TABLET EVERY MORNING Discharge Orders: Discharge Order (Routine); Ordered 03/11/23 Ordered By: Raven Shi/Other Patient Handouts: Managing Type 2 Diabetes, Diabetes: Meal Planning Admission Data Admit Date/Time: 03/11/23 00:07 Attending Provider: Raven Hathaway Admit Provider: Geovany Gonzalez Primary Care Provider: Malika Harris Other Providers: Geovany Gonzalez; Harjit Fermin Other Interventions: Discharge Summary Assessment (RN) Last Done: 03/11/23 11:45 Coding Level of Care Code 48404 INP/OBS DISCH >30 MIN Diagnoses Stroke-like symptoms R29.90 History of subdural hematoma Z86.79 Ataxia R27.0 Mild obstructive sleep apnea G47.33 Diabetes mellitus, type 2 E11.9 Atrial fibrillation status post cardioversion I48.91 Essential hypertension I10 Hypertension type: essential hypertension Hyperlipidemia, unspecified hyperlipidemia type E78.5 Hyperlipidemia type: unspecified Time Spent (min) 35
--- NOTE | 2023-03-11 16:56 | XCELERA ---
[id number] [email or web address]\[id number]___[id number]
--- NOTE | 2023-03-12 06:28 | Electrocardiogram Report ---
Test Reason : Blood Pressure : / mmHG Vent. Rate : 059 BPM Atrial Rate : 059 BPM P-R Int : 196 ms QRS Dur : 082 ms QT Int : 400 ms P-R-T Axes : -04 -27 -19 degrees QTc Int : 396 ms Sinus bradycardia Low voltage QRS Inferior infarct , age undetermined Possible Anterolateral infarct (cited on or before 10-MAR-2023) Abnormal ECG When compared with ECG of 02-DEC-2022 15:35, No significant change Confirmed by Narayan Sharma ([id number]) on 03/12/2023 6:28:30 AM Referred By: REFERRED SELF Confirmed By:Narayan Sharma
--- NOTE | 2023-03-16 14:26 | Pharmacy Report ---
Pharmacist Stroke Counseling - Date of Service March 16, 2023 - Scope: Pharmacy has been consulted to provide medication discharge counseling for this patient admitted with [ischemic stroke] [hemorrhagic stroke] [transient ischemic attack] as per the Pharmacist Discharge Counseling for Stroke Patients [facility]. - Medications on Discharge: Home Medications Medication Instructions Recorded Confirmed albuterol sulfate 90 mcg/actuation 1 puffs inhalation DIRECTED PRN 12/02/18 03/16/23 aerosol inhaler Shortness Of Breath Or Wheezing #1 g amlodipine 5 mg tablet 5 mg PO QAM 03/10/23 03/16/23 New Rx's Medication Instructions Recorded lancets (Accu-Chek Fastclix Lancet #100 ea 07/17/20 Drum) simvastatin 20 mg tablet 20 mg PO HS #90 tabs 02/12/22 lisinopril 20 mg tablet 20 mg PO QAM #90 tabs 10/16/22 metformin 500 mg tablet,extended See Rx Instructions .Route 10/22/22 release 24 hr .COMPLEX #180 tabs Accu-Chek Mami Plus test strp #100 ea 12/15/22 (blood sugar diagnostic) blood-glucose meter (Accu-Chek #1 ea 12/17/22 Guide Glucose Meter) aspirin 81 mg tablet,delayed 81 mg PO QAM 30 days #30 tabs 03/11/23 release empagliflozin 10 mg tablet 10 mg PO QAM #30 tabs 03/16/23 (Jardiance) - Action: The above medications, specifically ones for stroke treatment/prophylaxis, have been reviewed in detail with the patient and/or patient surgical device sales representative(s) prior to discharge. This includes indication, common adverse reactions, drug interactions, and medication administration. Medication counseling has been employed using the teach-back method to ensure understanding. - Outcome: The patient and/or patient surgical device sales representative(s) have demonstrated understanding of the medications. Additional comments: Spoke with Zander today. He has picked up the baby aspirin he was started on and has begun taking it. He stated he was prescribed Jardiance today and will begin taking it once ready. He has been taking his lisinopril and metformin as well. Discussed the importance of all these medications for stroke prevention. Zander had no additional questions regarding his medications. Thank you for allowing pharmacy to be involved in the care of this patient. Please call [phone] with any additional questions
== END 2023-03-11 12:51 | disposition home or self-care (01) | DRG 64 ==
LOC: EDINP 09:05 → ED 09:05 → SUATTDRO 03-11 00:07 → 2S 03-11 03:34